=== PATIENT | male | born 1975 | race Caucasian/White ===

== ENCOUNTER 2025-02-21 06:22 | Day surgery (SDC) | payer BC, SELFPAY | END 2025-02-21 10:17 | disposition home or self-care (01) | LOC: GI 06:22 | PROVIDERS: ATTENDING PHYSICIAN Internal Medicine Gastroenterology | DX: R10.13 Epigastric pain (principal); K31.89 Other diseases of stomach and duodenum; K52.9 Noninfective gastroenteritis and colitis, unspecified; K64.8 Other hemorrhoids; K62.1 Rectal polyp | CPT/HCPCS: 43239; 45380; 88305; 88342 ==